=== PATIENT | female | born 1995 ===

== ENCOUNTER 2020-10-18 17:21 | Emergency (ER) | payer SELFPAY ==
[~2020-10-18] VITALS: Ht 157.5 cm; Wt 61.4 kg
[2020-10-18 19:21] VITALS: BP 136/84
== END 2020-10-18 20:22 | disposition home or self-care (01) ==
LOC: EMS 17:21
DX: F10.129 Alcohol abuse with intoxication, unspecified (principal); R11.0 Nausea; Y90.9 Presence of alcohol in blood, level not specified
CPT/HCPCS: 82962; 99283